=== PATIENT | female | born 1945 | race Caucasian/White ===

== ENCOUNTER → 2018-10-26 | Outpatient (CLI) | payer MEDICARE, BC ==
--- NOTE | 2018-10-26 15:58 | RADIOLOGY IMAGING REPORT ---
FACILITY: [facility] PATIENT NAME: TIFFANY CUNHA : [id number] MR: [id number] V: [id number] EXAM DATE: ORDERING PHYSICIAN: SYDNEE ANNE TECHNOLOGIST: Nithya Moody PROCEDURE:BILATERAL DIGITAL SCREENING MAMMOGRAM WITH CAD ASSISTED INTERPRETATION & 3D TOMOSYNTHESIS COMPARISON:Prior mammograms 01/23/16, 11/10/14, 01/08/13, 08/03/12. INDICATIONS:SCREENING FINDINGS: The breasts are heterogeneously dense which can obscure small masses. The parenchymal pattern has remained stable allowing for difference in mammographic technique & patient positioning. DIAGNOSTIC CATEGORY 1--NEGATIVE. RECOMMENDATIONS: ROUTINE MAMMOGRAM AND CLINICAL EVALUATION. IMPRESSION: BIRADS 1: Negative. No significant abnormality is seen. Dictated by: Chiquita Byrd M.D. on 10/26/2018 at 13:39 Transcribed by: SYLVAIN on 10/26/2018 at 14:22 Approved by: Chiquita Byrd M.D. on 10/26/2018 at 15:57 [facility]
== END ==
LOC: MAMO 11:15
PROVIDERS: ATTEND Nurse Practitioner Family
DX: Z12.31 Encounter for screening mammogram for malignant neoplasm of breast (principal)
CPT/HCPCS: 77063; 77067

== ENCOUNTER → 2018-10-26 | Outpatient (CLI) | payer MEDICARE, BC ==
--- NOTE | 2018-10-26 13:55 | RADIOLOGY IMAGING REPORT ---
FACILITY: [facility] PATIENT NAME: Shameka Hopper : 1945 MR: [id number] V: [id number] EXAM DATE: ORDERING PHYSICIAN: MICHELLE SUAREZ TECHNOLOGIST: Location: [facility] Patient: Shameka Hopper : 1945 Visit/Account:[id number] Date of Sevice: 10/26/2018 DEXA Scan Clinical history: Asymptomatic postmenopausal state. Comparison: None available. LUMBAR SPINE: The bone mineral density (BMD) measured from L1-L4 correlates with a Z-score 0.2 and a T-score of -1. 6 which is osteopenia as defined by the World Health Organization. The corresponding risk of fractur e in the lumbar spine is 3-4 times increased compared with a young adult reference population. HIP: Bone mineral density (BMD) measured in the Left total hip region correlates with a Z-score zero and a T-score of -1.7 which is osteopenia as defined by the World Health Organization. The corresponding risk of fracture in the hip is 3-4 times increased compared with a young adult reference population. T score left femoral neck -2.8 Bone mineral density (BMD) measured in the Femoral Neck region measures 0.653 g/cm2. Impression: 1. Lumbar spine: Osteopenia. 2. Left Hip: Osteopenia. 3. Femoral Neck: Bone Mineral Density is 0.653 g/cm2 The next DEXA scan of this patient should include the following sites: L1-L4 and the left hip. FRAX? WHO Fracture Risk Assessment Tool link: <http://www.shef.ac.uk/FRAX/tool.jsp?locationValue=9> PLEASE NOTE: 1) The World Health Organization defines low BMD as follows: T-score Normal > -1 Osteopenia < -1 and > -2.5 Osteoporosis < -2.5 without fractures Established osteoporosis < -2.5 with fractures 2) In general, you may wish to consider: Diagnosis Treatment Follow-up DEXA Normal BMD Prevention 2-3 years Osteopenia Prevention/therapy 1-2 years Osteoporosis Therapy Yearly 3) Fracture risk estimated from the T-score is more accurate for vertebral fractures (often spontane ous) than for hip fractures. Report Dictated By: Chiquita Byrd MD at 10/26/2018 1:50 PM Report E-Signed By: Chiquita Byrd MD at 10/26/2018 1:51 PM WSN:[email or web address]
== END ==
LOC: RAD 11:09
PROVIDERS: ATTEND Obstetrics & Gynecology
DX: Z13.820 Encounter for screening for osteoporosis (principal); M85.89 Other specified disorders of bone density and structure, multiple sites
CPT/HCPCS: 77080